=== PATIENT | female | born 1990 | race Caucasian/White ===

== ENCOUNTER 2021-02-19 17:09 | Emergency (ER) | payer OTHER ==
[~2021-02-19] VITALS: Ht 162.6 cm; Wt 59.0 kg
[2021-02-19 17:17] VITALS: BP 133/90
[2021-02-19] MEDS ORDERED: ACETAMINOPHEN 500 MG TABLET PO ONE (17:30)
[2021-02-19] MEDS ORDERED: DIPHTH,PERTUSS(ACELL),TET TOX 0.5 ML DISP.SYRIN. VAX IM ONE (17:30)
[2021-02-19] MEDS ORDERED: AMOXICILLIN/K CLAV 875/125MG TABLET. PO ONE (17:30)
[2021-02-19] MEDS ORDERED: IBUP-1007 PO (17:41)
[2021-02-19] MEDS ORDERED: AMOX1TAB61 PO (17:41)
--- NOTE | 2021-02-19 17:42 | PHYS DOC ---
Past Medical History Past Surgical History: Other Additional Past Surgical Histo: ABDOMINAL EX LAP, BONE SPUR Adult General Chief Complaint Chief Complaint: ANIMAL BITE HPI HPI The patient is a 30-year-old [id number] female who is otherwise healthy. Tetanus is not up-to-date. She presents for evaluation of punctate dog bites to the volar aspect of her left index finger sustained yesterday. Dog is owned by the patient's friend and is up-to-date on its vaccinations, and the bite sounds to have been provoked; patient was trying to get some plastic out of its mouth. Patient elected emergency department evaluation this afternoon because there is persistent discomfort and swelling to the finger, mild, but worst over the DIP joint, volar side. No fevers, nausea or vomiting or other systemic symptoms. No swelling, erythema or discomfort to the left hand or wrist or forearm or elbow or shoulder. Patient has been taking ibuprofen without complete relief of symptoms. Patient is alert and pleasantly appropriately interactive and in no acute distress with completely appropriate vital signs upon initial evaluation here in the emergency department. Review of Systems Review of Systems A 12 point review of systems was completed and was negative except where noted in HPI above. Current Medications Current Medications Current Medications Medications (Trade) Dose Ordered Sig/Rush Start Time Stop Time Status Last Admin Dose Admin Acetaminophen (Tylenol) 1,000 mg 1X ONCE 02/19/21 17:30 02/19/21 17:31 DC Amoxicillin/ Clavulanate Potassium (Augmentin 875/ 125mg) 1 tab 1X ONCE 02/19/21 17:30 02/19/21 17:31 DC Diphtheria/ Tetanus/Acell Pertussis (Boostrix) 0.5 ml ONCE ONCE 02/19/21 17:30 02/19/21 17:31 DC Allergies Allergies Allergies Coded Allergies Type Severity Reaction Last Updated Verified No Known Drug Allergies 02/19/21 No Physical Exam Physical Exam 30-year-old female appearing nontoxic and in no acute distress. Head is normocephalic and atraumatic. Neck is supple and nontender. Oropharynx is moist. Lungs are clear to auscultation at all stations. There is normal S1 and S2 without rubs or gallops and capillary refill is appropriate, less than 2 seconds globally. Abdomen is soft, nontender nondistended. Skin is warm and dry without cyanosis, clubbing or edema. Psychiatrically, the patient demonstrates appropriate mood and affect and is alert. Evaluation of the extremities reveals BUEs and BLEs neurovascularly intact distally strength 5-5, sensation intact light touch in all nerve distributions, capillary refill less than 2 seconds, hands and feet warm and well-perfused. There is mild erythema and tenderness to the volar aspect of the left index finger over and just distal to the DIP joint. No significant limitation in ranging at the DIP joint. No fusiform swelling of the left index finger. No erythema, warmth or swelling proximal to the left index finger. Few punctate dog bites are noted superimposed on the mildly swollen area described above. Current Patient Data Vital Signs Vital Signs Date Time Temp Pulse Resp B/P (MAP) Pulse Ox O2 Delivery O2 Flow Rate FiO2 02/19/21 17:17 98.5 56 16 133/90 (104) 98 Room Air 98.5 EKG EKG [] Radiology/Procedures Radiology/Procedures XR fingers L: no acute fracture or dislocation imaged per EP interpretation. Formal radiology interpretation is to follow. Course & Med Decision Making Course & Med Decision Making We will give a dose of Tylenol for discomfort, start Augmentin, update tetanus and obtain plain films of the hand. We will then reevaluate. Likely home with an Augmentin course to follow-up closely with primary care. Patient understands and agrees. 1747: Plain films unremarkable. Tetanus has been updated. Initial dose of Augmentin has been given. Will discharge home with Augmentin and an ibuprofen course as per plan above. Patient understands that if she feels worse instead of better or develops other new symptoms of concern that she will need to return to the emergency department immediately for reevaluation. All questions are answered. Dragon Disclaimer Dragon Disclaimer This electronic medical record was generated, in whole or in part, using a voice recognition dictation system. Departure Departure Impression: Primary Impression: Dog bite of index finger Disposition: HOME / SELF CARE / HOMELESS Condition: IMPROVED Patient Instructions: Animal Bite Additional Instructions: Follow-up very closely with your primary care doctor in the office in the next 2 to 4 days for a reevaluation of your symptoms and a discussion of next best steps in care. Begin taking the Augmentin antibiotic and take it twice a day for the next 10 days to treat your dog bite. Please take the antibiotic until it is completely gone; there is no such thing as a leftover antibiotic. Drink plenty of fluids. Take a 600 mg ibuprofen pill every 6 hours for discomfort, with food to prevent stomach upset. Take ibuprofen on a schedule for the first 3 to 5 days and then as needed after that. Return to the emergency department right away for worsening symptoms of any kind or with any other new symptoms of concern. Scripts Ibuprofen (IBUPROFEN) 600 Mg Tablet 600 MG PO PRN Q6HRS PRN for PAIN, #40 TAB take with food or milk Prov: IVETTE MOSQUERA MD 02/19/21 Amoxicillin/Potassium Clav (AUGMENTIN 875-125 TABLET) 1 Each Tablet 1 TAB PO Q12HR, #20 TAB Prov: IVETTE MOSQUERA MD 02/19/21 Problem Qualifiers Primary Impression: Dog bite of index finger Encounter type: initial encounter Qualified Codes: S61.258A - Open bite of other finger without damage to nail, initial encounter; W54.0XXA - Bitten by dog, initial encounter IVETTE MOSQUERA MD Feb 19, 2021 17:42
--- NOTE | 2021-02-19 18:00 | RAD ---
Left index finger 3 views. HISTORY: Dog bite 3 views were taken of the left index finger. There is not evidence of an acute fracture or osseous ab normality. IMPRESSION: 1. No acute fracture noted in the left index finger. Electronically signed by: Talha Martin MD (02/19/2021 5:58 PM) [facility]
== END 2021-02-19 18:01 | disposition home or self-care (01) ==
LOC: ER 17:09
DX: S61.251A Open bite of left index finger without damage to nail, initial encounter (principal); W54.0XXA Bitten by dog, initial encounter; Y93.89 Activity, other specified; Y92.89 Other specified places as the place of occurrence of the external cause; Y99.8 Other external cause status
CPT/HCPCS: 73140; 90471; 90715; 99283